=== PATIENT | male | born 1990 | race Caucasian/White ===

== ENCOUNTER 2024-07-01 21:41 | Emergency (ER) | payer MEDICAID, SELFPAY ==
[2024-07-01 21:44] VITALS: BP 117/63; PULSE 115; RESP 18; TEMP 36.7; O2SAT 99; BMI 22.4
[2024-07-01 23:01] LABS: Basophils # 0.1 10^3/uL (0.0-0.1); Basophils % 0.5 %; Eosinophils % 0.3 %; Hematocrit 44.1 % (37-53); Lymphocytes # 2.7 10^3/uL (0.8-4.8); Lymphocytes % 25.1 %; Mean Corpuscular HGB Conc 35.6 g/dL (30-55); Mean Corpuscular Hemoglobin 32.2 pg (27-33); Mean Corpuscular Volume 90.4 fl (82-101); Mean Platelet Volume 10.3 fL (7.4-10.4); Monocytes # 0.8 10^3/uL (0.2-0.9); Monocytes % 7.2 %; Neutrophils # 7.07 10^3/uL (1.8-7.7); Neutrophils % 66.6 %; Nucleated Red Blood Cells % 0 %; Platelet Count 252 10^3/cmm (157-399); Red Blood Count 4.88 10^6/uL (3.85-5.65); Red Cell Distribution Width 12.5 % (12.1-15.1)
--- NOTE | 2024-07-01 23:12 | ECG_ITS ---
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 Measurements Intervals [place] Rate: 105 P: 76 [place]: 157 QRS: 34 QRSD: 94 T: 50 QT: 331 QTc: 438 Interpretive Statements SINUS TACHYCARDIA NONSPECIFIC T-WAVE ABNORMALITY ABNORMAL RHYTHM ECG No previous ECG available for comparison Electronically Signed On 07-02-2024 22:27:19 CDT by José Antonio Pérez M.D. [email or web address]
[2024-07-01 23:20] LABS: Bilirubin Urine Negative (Negative); Blood Urine Negative (Negative); Glucose Urine UA Negative (Normal); Ketones Urine 1+ (Negative); Leukocyte Esterase Urine Trace (Negative); Nitrate Urine Negative (Negative); Protein Urine 2+ (Negative); Specific Gravity, Urine 1.022 (1.005-1.030); Urine Appearance Cloudy (CLEAR); Urine Color Yellow (Yellow)
[2024-07-01 23:23] LABS: Add Urine Microscopic? YES; Bacteria Urine None Seen /hpf; Hyaline Casts Urine 6.17 /lpf; Squamous Epithelial Cell Urine 0-5 /hpf (0-5); Universal Test for UA Present (0)
[2024-07-01 23:27] LABS: Acetaminophen < 5.0 ug/mL (10-30); Alanine Aminotransferase 61 U/L (0-41); Albumin Level 4.4 g/dL (3.5-5.2); Alcohol Level < 10 mg/dL (0-10); Alkaline Phosphatase 98 U/L (40-130); Anion Gap 15.6 (5-19); Aspartate Amino Transferase 31 U/L (0-40); Blood Urea Nitrogen 14 mg/dL (6-20); Calcium 9.2 mg/dL (8.5-10.5); Carbon Dioxide 20 mmol/L (22-29); Chloride 110 mmol/L (98-107); Creatinine Clr Calc Pharmacy 97.8991; Globulin 3.2 g/dL (1.3-4.6); Glomerular Filtration Rate 97.2 mL/min (90-130); Glucose 99 mg/dL (65-115); Osmolality Calculated 295 mOsm/kg (285-295); Potassium 3.6 mmol/L (3.5-5.1); Salicylate < 0.3 mg/dL (3-10); Sodium 142 mmol/L (136-145); Total Bilirubin 0.6 mg/dL (0.15-1.2); Total Protein 7.6 g/dL (6.6-8.7)
[2024-07-01 23:32] LABS: Add Urine Culture? No; Sperm Urine 4+ /hpf
[2024-07-01 23:33] LABS: Amphetamines Screen Urine Positive (Negative); Barbiturates Screen Urine Negative (Negative); Benzodiazepines Screen Urine Negative (Negative); Cocaine Screen Urine Negative (Negative); Opiate Screen Urine Negative (Negative); PCP Screen Urine Negative (Negative); THC Screen Urine Negative (Negative)
[2024-07-01 23:54] LABS: Covid PCR NEGATIVE (Negative); Influenza A NEGATIVE (Negative); Influenza B NEGATIVE (Negative); Respiratory Syncytial Virus Ce NEGATIVE (Negative)
--- NOTE | 2024-07-02 01:06 | PC.NURSE ---
Pt. waiting for bed, sitting in gould recliner at this time. Pt. has no complaints or needs at this time. Pt. awaiting placement and transfer to psychiatric facility.
--- NOTE | 2024-07-02 01:55 | W.ED.PSYCHS ---
HPI - Psych General: Chief Complaint: Psychiatric Symptoms Stated Complaint: SI, Time Seen by Provider: 07/01/24 21:59 History of Present Illness: 34-year-old male with a history of substance abuse, in rehabilitation program currently. He has had increasing depression for the last week or so, with thoughts of suicide today while on a 12-hour past away from the rehabilitation facility. He had thoughts of wanting to overdose and end his life, mainly over stress related to his relationship with his significant other. He has not been ill, had fever, etc. Related Data Home Medications Medication Instructions Recorded Confirmed No Known Home Medications 01/20/21 01/20/21 Allergies Allergy/AdvReac Type Severity Reaction Status Date / Time No Known Allergies Allergy Verified 01/20/21 11:56 Physical Exam Const: COMMON NORMALS: no acute distress GENERAL APPEARANCE: cooperative; not ill appearing and not frail appearing HENMT: COMMON NORMALS: normocephalic, atraumatic and Normal external nose present HEAD & SCALP: normocephalic and atraumatic FACE & SINUS: normal facial exam and face symmetric NOSE: Normal external nose present Eye: COMMON NORMALS: Equal, round and reactive pupils present and EOMs intact bilaterally PUPIL: Yes Equal, round and reactive pupils present Neck/C-Spine: GENERAL: Yes trachea midline Chest: CHEST: Yes Symmetrical chest wall rise Resp: COMMON NORMALS: normal respiratory effort, No retractions, No use of accessory muscles and clear to auscultation bilaterally AUSCULTATION: clear to auscultation bilaterally Cardio: COMMON NORMALS: regular rate and regular rhythm RATE: regular rate RHYTHM: regular rhythm GI: COMMON NORMALS: Normal to inspection, nondistended, normoactive bowel sounds present Extremity: COMMON NORMALS: no pedal edema Neuro: NICOLE COMA SCALE: document GCS findings Nicole coma scale eye opening: Spontaneous [place] coma scale verbal response: Orientated Nicole coma scale motor response: Obey commands [place] coma scale total score: 15 SENSORY EXAM: Yes extremities (intact) Psych: COMMON NORMALS: speech normal SPEECH: Yes normal speech Skin: COMMON NORMALS: no rashes or lesions noted GENERAL SKIN EXAM: no rashes or lesions noted Course Vital Signs: Vital signs: Vital Signs Temperature 98.0 F 07/01/24 21:44 Pulse Rate 76 07/02/24 05:47 Respiratory Rate 18 07/02/24 05:47 Blood Pressure 113/74 07/02/24 05:47 Pulse Oximetry 98 07/02/24 05:47 Oxygen Delivery Me thod Room Air 07/02/24 05:39 MDM - Psych Medical Decision Making This patient has been calm and cooperative here. He wishes for psychiatric evaluation due to his increasing depression with suicidal ideation. Medically, he is quite stable. He does not appear toxic. He has been calm, and cooperative., And actually quite respectful. We have no beds available at our facility. We will attempt to find the patient in bed at an appropriate psychiatric facility. Patient accepted at a facility in [place]. He went by ground ambulance this morning. Lab Data 07/01/24 22:56 07/01/24 22:56 Laboratory Results WBC 10.60 10^3/uL (3.29-11.43) 07/01/24 22:56 RBC 4.88 10^6/uL (3.85-5.65) 07/01/24 22:56 Hgb 15.70 g/dL (11.27-16.99) 07/01/24 22:56 Hct 44.1 % (37-53) 07/01/24 22:56 MCV 90.4 fl (82-101) 07/01/24 22:56 MCH 32.2 pg (27-33) 07/01/24 22:56 MCHC 35.6 g/dL (30-55) 07/01/24 22:56 RDW 12.5 % (12.1-15.1) 07/01/24 22:56 Plt Count 252 10^3/cmm (157-399) 07/01/24 22:56 MPV 10.3 fL (7.4-10.4) 07/01/24 22:56 Neut % (Auto) 66.6 % 07/01/24 22:56 Lymph % (Auto) 25.1 % 07/01/24 22:56 [place] % (Auto) 7.2 % 07/01/24 22:56 Eos % (Auto) 0.3 % 07/01/24 22:56 Baso % (Auto) 0.5 % 07/01/24 22:56 Neut # (Auto) 7.07 10^3/uL (1.8-7.7) 07/01/24 22:56 Lymph # (Auto) 2.7 10^3/uL (0.8-4.8) 07/01/24 22:56 [place] # (Auto) 0.8 10^3/uL (0.2-0.9) 07/01/24 22:56 Eos # (Auto) 0.0 10^3/uL (0.0-0.8) 07/01/24 22:56 Baso # (Auto) 0.1 10^3/uL (0.0-0.1) 07/01/24 22:56 Nucleated RBC % (auto) 0 % 07/01/24 22:56 Nucleated RBCs # 0.0 /100WBC 07/01/24 22:56 Sodium 142 mmol/L (136-145) 07/01/24 22:56 Potassium 3.6 mmol/L (3.5-5.1) 07/01/24 22:56 Chloride 110 mmol/L (98-107) H 07/01/24 22:56 Carbon Dioxide 20 mmol/L (22-29) L 07/01/24 22:56 Anion Gap 15.6 (5-19) 07/01/24 22:56 BUN 14 mg/dL (6-20) 07/01/24 22:56 Creatinine 0.9 mg/dL (0.7-1.2) 07/01/24 22:56 GFR Calculation 97.2 mL/min (90-130) 07/01/24 22:56 Glucose 99 mg/dL (65-115) 07/01/24 22:56 Calculated Osmolality 295 mOsm/kg (285-295) 07/01/24 22:56 Calcium 9.2 mg/dL (8.5-10.5) 07/01/24 22:56 Total Bilirubin 0.6 mg/dL (0.15-1.2) 07/01/24 22:56 AST 31 U/L (0-40) 07/01/24 22:56 ALT 61 U/L (0-41) H 07/01/24 22:56 Alkaline Phosphatase 98 U/L (40-130) 07/01/24 22:56 Total Protein 7.6 g/dL (6.6-8.7) 07/01/24 22:56 Albumin 4.4 g/dL (3.5-5.2) 07/01/24 22:56 Globulin 3.2 g/dL (1.3-4.6) 07/01/24 22:56 TSH 0.90 uIU/mL (0.27-4.20) 07/01/24 22:56 Urine Color Yellow (Yellow) 07/01/24 22:59 Urine Appearance Cloudy (CLEAR) A 07/01/24 22:59 Urine pH 6.0 (5-7) 07/01/24 22:59 Ur Specific [place] 1.022 (1.005-1.030) 07/01/24 22:59 Urine Protein 2+ (Negative) A 07/01/24 22:59 Urine Glucose (UA) Negative (Normal) 07/01/24 22:59 Urine Ketones 1+ (Negative) H 07/01/24 22:59 Urine Blood Negative (Negative) 07/01/24 22:59 Urine Nitrate Negative (Negative) 07/01/24 22:59 Urine Bilirubin Negative (Negative) 07/01/24 22:59 Urine Urobilinogen 1.0 mg/dL (Negative) 07/01/24 22:59 Ur Leukocyte Esterase Trace (Negative) A 07/01/24 22:59 Urine RBC 3-5 /hpf (0-2) 07/01/24 22:59 Urine WBC 11-20 /hpf (0-5) H 07/01/24 22:59 Ur Squamous Epith Cells 0-5 /hpf (0-5) 07/01/24 22:59 Amorphous Sediment Not Reportable 07/01/24 22:59 Urine Bacteria None seen /hpf (NONE) 07/01/24 22:59 Hyaline Casts 6.17 /lpf 07/01/24 22:59 Urine Sperm 4+ /hpf 07/01/24 22:59 Salicylates < 0.3 mg/dL (3-10) L 07/01/24 22:56 Urine Opiates Screen Negative ng/mL (Negative) 07/01/24 22:59 Acetaminophen < 5.0 ug/mL (10-30) L 07/01/24 22:56 Ur Barbiturates Screen Negative ng/mL (Negative) 07/01/24 22:59 Ur Phencyclidine Scrn Negative ng/mL (Negative) 07/01/24 22:59 Ur Amphetamines Screen Positive ng/mL (Negative) H 07/01/24 22:59 U Benzodiazepines Scrn Negative ng/mL (Negative) 07/01/24 22:59 Urine Cocaine Screen Negative ng/mL (Negative) 07/01/24 22:59 U Marijuana (THC) Screen Negative ng/mL (Negative) 07/01/24 22:59 Ethyl Alcohol < 10 mg/dL (0-10) 07/01/24 22:56 Coronavirus (PCR) Negative (Negative) 07/01/24 22:59 Influenza A (PCR) Negative (Negative) 07/01/24 22:59 Influenza Type B (PCR) Negative (Negative) 07/01/24 22:59 RSV (PCR) Negative (Negative) 07/01/24 22:59 No radiology studies performed this visit Discharge Plan Discharge Patient Disposition: Xfer Psychiatric Hosp Clinical Impression: Depression, Suicidal ideation Condition: Stable Coding Level of Care Code ED Machine Repairer for Gisell Lindsey
[2024-07-02 05:39] VITALS: BP 113/74; PULSE 78; RESP 18; O2SAT 98
[2024-07-02 05:47] VITALS: BP 113/74; PULSE 76; RESP 18; O2SAT 98
--- NOTE | 2024-07-02 09:11 | PC.NURSE ---
Spoke with Steve Wallace, patient's sponsor at [facility], informing that the patient is in the ER and that he did have a relapse and use drugs. I also informed his sponsor that he was being transferred to [facility] in [place]. Steve thanked me for letting me know and asked me to tell the patient, Bernard, that he will be contacting him once he gets to [place] and that he will come see him.
== END 2024-07-02 15:45 ==
PROVIDERS: Emergency Provider Emergency Medicine
DX: R45.851 Suicidal ideations (principal); F32.A Depression, unspecified; Z11.52 Encounter for screening for COVID-19
CPT/HCPCS: 0241U; 36415; 80053; 80306; 80307; 81001; 84443; 85025; 93005; 99284